=== PATIENT | male | born 1985 | race Caucasian/White ===

== ENCOUNTER 2023-01-29 10:37 | Outpatient (REF) | payer BC, SELFPAY ==
[2023-02-16 12:27] LABS: Misc Referral (UVM) See Comments
== END 2023-01-29 10:38 | disposition home or self-care (01) ==
LOC: NCHCN 10:37
PROVIDERS: PCP Family Medicine; Visit Provider Family Medicine
DX: Z13.220 Encounter for screening for lipoid disorders (principal)
CPT/HCPCS: 80061